=== PATIENT | female | born 1960 | race African-American/Black ===

== ENCOUNTER → 2023-11-09 12:19 | Outpatient (REF) | payer OTHER, SELFPAY | LOC: HWRAD 12:19 | PROVIDERS: ATTENDING PHYSICIAN Student in an Organized Health Care Education/Training Program | DX: M25.511 Pain in right shoulder (principal) | CPT/HCPCS: 72072; 73030 ==

== ENCOUNTER → 2023-12-28 14:22 | Outpatient (REF) | payer OTHER, SELFPAY | LOC: WDC 14:22 | PROVIDERS: ATTENDING PHYSICIAN Student in an Organized Health Care Education/Training Program | DX: Z12.31 Encounter for screening mammogram for malignant neoplasm of breast (principal) | CPT/HCPCS: 77063; 77067 ==

== ENCOUNTER → 2024-04-26 06:46 | Outpatient (REF) | payer OTHER, SELFPAY | LOC: RAD 06:46 | PROVIDERS: ATTENDING PHYSICIAN Student in an Organized Health Care Education/Training Program | DX: R20.2 Paresthesia of skin (principal) | CPT/HCPCS: 93922 ==

== ENCOUNTER → 2024-09-22 11:40 | Outpatient (REF) | payer MEDICARE, OTHER, SELFPAY | LOC: HWRAD 11:40 | PROVIDERS: ATTENDING PHYSICIAN Student in an Organized Health Care Education/Training Program | DX: R76.11 Nonspecific reaction to tuberculin skin test without active tuberculosis (principal) | CPT/HCPCS: 71046 ==

== ENCOUNTER → 2024-10-06 08:57 | Outpatient (REF) | payer MEDICARE, OTHER, SELFPAY | LOC: RCS 08:57 | PROVIDERS: ATTENDING PHYSICIAN Student in an Organized Health Care Education/Training Program | DX: R01.1 Cardiac murmur, unspecified (principal) | CPT/HCPCS: 93306 ==

== ENCOUNTER → 2024-10-16 13:47 | Outpatient (REF) | payer MEDICARE, OTHER, SELFPAY | LOC: RAD 13:47 | PROVIDERS: ATTENDING PHYSICIAN Student in an Organized Health Care Education/Training Program | DX: R10.13 Epigastric pain (principal); M79.609 Pain in unspecified limb; I87.2 Venous insufficiency (chronic) (peripheral) | CPT/HCPCS: 76700; 93970 ==

== ENCOUNTER 2024-10-19 06:24 | Day surgery (SDC) | payer MEDICARE, OTHER, SELFPAY | END 2024-10-19 12:50 | disposition home or self-care (01) | LOC: GI 06:24 | PROVIDERS: ATTENDING PHYSICIAN Internal Medicine | DX: R12 Heartburn (principal); K22.89 Other specified disease of esophagus; K44.9 Diaphragmatic hernia without obstruction or gangrene; K63.89 Other specified diseases of intestine | CPT/HCPCS: 43239; 88305; 88342 ==

== ENCOUNTER → 2024-11-06 13:18 | Outpatient (REF) | payer MEDICARE, OTHER, SELFPAY | LOC: HWRAD 13:18 | PROVIDERS: ATTENDING PHYSICIAN Student in an Organized Health Care Education/Training Program; FAMILY PHYSICIAN Student in an Organized Health Care Education/Training Program | DX: I83.90 Asymptomatic varicose veins of unspecified lower extremity (principal); I87.2 Venous insufficiency (chronic) (peripheral) | CPT/HCPCS: 93970 ==

== ENCOUNTER → 2024-11-15 10:31 | Outpatient (REF) | payer MEDICARE, OTHER, SELFPAY | LOC: RAD 10:31 | PROVIDERS: ATTENDING PHYSICIAN Internal Medicine; FAMILY PHYSICIAN Student in an Organized Health Care Education/Training Program | DX: R10.13 Epigastric pain (principal) | CPT/HCPCS: 78227; A9537; J2805 ==

== ENCOUNTER 2024-12-28 06:11 | Day surgery (SDC) | payer MEDICARE, OTHER, SELFPAY ==
[2024-12-28 12:53] VITALS: BMI 39.4
[2024-12-28 13:00] VITALS: BP 153/65
[2024-12-28 13:06] VITALS: BMI 39.4
[2024-12-28 14:32] VITALS: BP 119/47
[2024-12-28 14:47] VITALS: BP 133/53
[2024-12-28 15:00] VITALS: BP 138/55
== END 2024-12-28 15:25 | disposition home or self-care (01) ==
LOC: SDS 06:11
PROVIDERS: ATTENDING PHYSICIAN Internal Medicine Gastroenterology
DX: K86.9 Disease of pancreas, unspecified (principal); R10.84 Generalized abdominal pain
CPT/HCPCS: 43238

== ENCOUNTER → 2025-02-12 07:13 | Outpatient (REF) | payer MEDICARE, OTHER, SELFPAY | LOC: EMG 07:13 | PROVIDERS: ATTENDING PHYSICIAN Student in an Organized Health Care Education/Training Program; FAMILY PHYSICIAN Student in an Organized Health Care Education/Training Program | DX: R29.898 Other symptoms and signs involving the musculoskeletal system (principal); R20.0 Anesthesia of skin | CPT/HCPCS: 95886; 95913 ==